=== PATIENT | male | born 1950 | race Hispanic/Latino ===

== ENCOUNTER 2023-03-14 07:40 | Outpatient (CLI) | payer MEDICARE | END 2023-03-14 07:41 | disposition home or self-care (01) | LOC: CSHCT 07:40 | PROVIDERS: ATTEND Internal Medicine Critical Care Medicine | DX: R06.09 Other forms of dyspnea (principal); R91.8 Other nonspecific abnormal finding of lung field; R94.2 Abnormal results of pulmonary function studies | CPT/HCPCS: 71250; 94060; 94726; 94729; 94760 ==

== ENCOUNTER 2024-11-06 07:09 | Outpatient (CLI) | payer MEDICARE | END 2024-11-06 07:10 | disposition home or self-care (01) | LOC: CSHCT 07:09 | PROVIDERS: ATTEND Nurse Practitioner Family | DX: R41.3 Other amnesia (principal); R26.81 Unsteadiness on feet; Z86.73 Personal history of transient ischemic attack (TIA), and cerebral infarction without residual deficits | CPT/HCPCS: 70450 ==